=== PATIENT | female | born 1985 | race Caucasian/White ===

== ENCOUNTER 2017-05-24 19:37 | Emergency (ER) | payer BC ==
[~2017-05-24] VITALS: Ht 165.1 cm; Wt 112.2 kg
[2017-05-24] MEDS ORDERED: BIRTH CONTROL (19:52)
[2017-05-24 20:07] LABS: APPEARANCE SL.HAZY ((CLEAR)); BILIRUBIN NEGATIVE; BLOOD LARGE; GLUCOSE (STRIP) NEGATIVE; KETONES 5; LEUKOCYTES SMALL; NITRITE NEGATIVE; PROTEIN (STRIP) 30; SPECIFIC GRAVITY 1.032 (1.000-1.030); UROBILINOGEN 0.2 MG/DL (0.2-1.0)
[2017-05-24 20:10] LABS: COLOR YELLOW ((YELLOW))
[2017-05-24 20:24] LABS: HEMATOCRIT 34.9 % (36.0-46.0); HEMOGLOBIN 11.1 G/DL (11.9-15.5); MCH 23.7 PG (29.0-34.0); MCHC 31.8 G/DL (30.0-36.0); MCV 74.4 FL (83-99); PLATELET COUNT 259 K/uL (156-360); RBC DIS.WIDTH-CV 15.1 % (11.8-14.6); RBC DIS.WIDTH-SD 40.7 % (39-53); RED BLOOD COUNT 4.69 M/uL (3.80-5.20); WHITE BLOOD COUNT 9.2 K/uL (4.1-10.2)
[2017-05-24 20:25] LABS: ALBUMIN 3.8 g/dL (3.2-4.8); CHLORIDE 109 mEq/L (99-109); SODIUM 139 mEq/L (136-147)
[2017-05-24 20:28] LABS: GLUCOSE 94 mg/dL (70-99); TOTAL PROTEIN 6.9 g/dL (6.4-8.3)
[2017-05-24 20:30] LABS: TOTAL BILIRUBIN 0.3 mg/dL (0.0-1.0)
[2017-05-24 20:31] LABS: ALKALINE PHOSPHATASE 97 IU/L (3-129); CREATININE 0.7 mg/dL (0.6-1.3); GFR ESTIMATE (CALCULATED) > 59 mL/min/
[2017-05-24 20:32] LABS: UREA NITROGEN (BUN) 11 mg/dL (9-23)
[2017-05-24 20:33] LABS: AST (GOT) 14 IU/L (2-34)
[2017-05-24 20:34] LABS: ALT (GPT) 13 IU/L (3-49)
[2017-05-24 20:35] LABS: LIPASE 25 U/L (1.0-51.0)
[2017-05-24 20:40] LABS: QUANTITATIVE HCG < 4.0 MIU/ML
[2017-05-24 20:52] LABS: BACTERIA 3+ /HPF; EPITHELIAL CELLS 1+ /HPF; MUCUS 2+ /LPF; RED BLOOD CELLS 0-5 /HPF (0-5); UCUL ADDED? YES
[2017-05-24] MEDS ORDERED: CARAFATE100 MG/ML PO (23:47)
[2017-05-24] MEDS ORDERED: MACROBID100 MG PO (23:49)
[2017-05-25 00:10] VITALS: BP 140/80
== END 2017-05-25 00:11 | disposition home or self-care (01) ==
LOC: EME 19:37
DX: R10.13 Epigastric pain (principal); R13.10 Dysphagia, unspecified; N39.0 Urinary tract infection, site not specified; N20.0 Calculus of kidney; Z79.3 Long term (current) use of hormonal contraceptives; Z98.84 Bariatric surgery status
CPT/HCPCS: 74177; 80053; 81003; 83690; 84702; 85027; 87086; 99281; 99284; J2405; J7030